=== PATIENT | male | born 1955 | race Caucasian/White ===

== ENCOUNTER 2024-05-13 18:52 | Emergency (ER) | payer SELFPAY ==
[2024-05-13 18:53] VITALS: BP 152/96
[2024-05-13 18:55] VITALS: BP 152/96
[2024-05-13 19:00] VITALS: BP 147/96
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
[2024-05-13 20:40] VITALS: BP 136/90
[2024-05-13 21:00] VITALS: BP 142/99
== END 2024-05-13 21:20 | disposition home or self-care (01) ==
LOC: EMR 18:52
PROVIDERS: EMERGENCY PHYSICIAN Emergency Medicine; FAMILY PHYSICIAN Family Medicine
DX: M25.532 Pain in left wrist (principal); M25.531 Pain in right wrist; S60.811A Abrasion of right wrist, initial encounter; V59.49XA Driver of pick-up truck or van injured in collision with other motor vehicles in traffic accident, initial encounter
CPT/HCPCS: 99283; 71046; 73110